=== PATIENT | female | born 1970 | race Caucasian/White ===

== ENCOUNTER 2016-08-30 08:11 | Observation (INO) | payer BC ==
[~2016-08-30] VITALS: Ht 167.6 cm; Wt 91.6 kg
--- NOTE | 2016-08-31 16:32 | NUR ---
PREADMIT PT CARE NOTE THIS IS A 45 YEAR OLD FEMALE THAT IS SCHEDULED FOR A LEFT TOTAL KNEE REPLACEMENT ON09/06/16 WITH FANY AG. PT LIVES WITH HER IN A ONE STORY HOME. STATES SHE HAS A TUB/SHOWER COMBINATION, SAID SHE IS OBTAINING A HANDHELD SHOWERHEAD AND A SHOWER SEAT. ALSO STATED SHE IS GOING TO GET A FRONT WHEELED WALKER. SHE PLANS ON DOING HER PT AN OP AT [facility] WITH ERICA. WILL FOLLOW THIS PT WHILE SHE IS IN THE HOSPITAL. 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
[2016-09-01] MEDS ORDERED: ORTHO TRI-CYCL1 EACH PO (12:49)
[2016-09-01] MEDS ORDERED: PROZAC20 MG PO (12:50)
[2016-09-01] MEDS ORDERED: ZYRTEC10 MG PO (12:50)
[2016-09-01] MEDS ORDERED: ARMOUR THYROID120 MG PO (12:50)
[2016-09-01] MEDS ORDERED: ADVIL200 MG PO (12:51)
[2016-09-01] MEDS ORDERED: ALEVE220 MG PO (12:51)
--- NOTE | 2016-09-06 05:47 | NUR ---
pt brushed teeth with chlorhexidene mouth solution and did nasal swabs x2 each nostril.
--- NOTE | 2016-09-06 08:33 | NUR ---
09/06/16 0833 Linh Monterroso 0825-PATIENT ARRIVED TO PACU ON 6L MASK O2 SAT 99% PATIENT NONAROUSABLE. LEFT KNEE CDI GOOD CAP REFILL PEDAL PULSE AND WARMTH. SR. BP 82/40 PER SUPRIYA ROUTER OPERATOR PIN GIVE REST OF THE LITER OF LR PLUS GIVEN ADDITIONAL LITER OF LR. 0828-PATIENT SLOWLY AROUSING OPENING EYES ORAL AIRWAY REMOVED. 6L MASK O2 SAT 99% PATIENT RETURNS TO SLEEPING.
--- NOTE | 2016-09-06 10:12 | NUR ---
PT SLEEPING, WITH AT BEDSIDE. NO IVF ORDERED. CALLED DR AG TO VERIFY. CONFIRMED NO IVF. TRANEXEMIC ACID TO BE BROUGHT BY PHARMACY TO BE GIVEN. 2L 02 VIA NC FOR DESATS WHEN SLEEPING. CONTINUOUS PULSE OX ON RIGHT HAND. IV IN SL. PLAN IS FOR PATIENT TO GO HOME TOMORROW PER DR AG.
--- NOTE | 2016-09-06 12:13 | NUR ---
PT PLACED ON BEDPAN. HAVING SLIGHT INCONTINENCE OF URINE WHILE GETTING BEDPAN UNDER HER. URINE BRIGHT ORANGE. EDUCATED PT ABOUT NORMALITY OF INCONTINENCE AND INABILITY TO FEEL URGE TO URINATE. TOLERATING CLEAR LIQUIDS. REPORTS BEING SLEEPY.
--- NOTE | 2016-09-06 12:41 | NUR ---
PT HAD LARGE INCONTINENT EPISODE OF URINE. 1PA TO CHAIR TO CLEAN LINENS. PERFORMED WELL WITH WALKER. PHYSICAL THERAPIST WILL SEE PATIENT AT 1330. NO DRAINAGE ON LEFT KNEE. CRYOCUFF AND SCDs IN PLACE WITH PATIENT BACK TO BED NOW. AT BEDSIDE.
--- NOTE | 2016-09-06 14:01 | NUR ---
patient up to bathroom. fresh ice water given. fresh ice in cryo cuff.
--- NOTE | 2016-09-06 15:28 | NUR ---
pt reports pain 3/10 and achy. feels ready to eat more solid food. no nausea. physical therapist reported that patient did very well with therapy this afternoon.
--- NOTE | 2016-09-06 19:14 | NUR ---
BEDSIDE REPORT RECEIVED FROM BRYCE FREEMAN. PT RESTING IN CHAIR. PT RATES RIGHT KNEE PAIN 2/10, STATES TOLERABLE AT THIS TIME. DRESSING TO KNEE IS C/D/I. PT DENIES ANY N/V, STATES ATE MOST OF DINNER WITHOUT ANY ISSUES. PT ON ROOM AIR, DENIES ANY SOB. CALL LIGHT WITHIN REACH. PT DENIES ANY FURTHER NEEDS AT THIS TIME.
--- NOTE | 2016-09-06 19:14 | NUR ---
PT SBA WITH FWW. DISCHARGE TOMORROW. TOLERATING REGULAR DIET. S/L. VOIDING WELL. PAIN WELL CONTROLLED WITH SCHEDULED MEDS. NO DRAINAGE ON LEFT KNEE DRESSING. CRYOCUFF.
--- NOTE | 2016-09-06 20:22 | NUR ---
PT ASSESSMENT COMPLETE. PT HAD JUST BEEN AMBULATING IN HALLS WITH , PT NOW RATES PAIN 3/10, SCHEDULED OXYCODONE AND TORADOL GIVEN. PT C/O ITCHING, NUBAIN GIVEN. DRESSING C/D/I, CRYO CUFF IN PLACE. TEDS/SCD/HP IN PLACE. AT BEDSIDE. CALL LIGHT WITHIN REACH. PT DENIES ANY FURTHER NEEDS AT THIS TIME.
--- NOTE | 2016-09-06 20:24 | NUR ---
PT ON ROOM AIR, SATS 96% PER CONTINUOUS PULSE OXIMETER.
--- NOTE | 2016-09-06 23:27 | NUR ---
PT SLEEPING, WAKES EASILY WHEN WALKING IN ROOM. PT DENIES ANY NEED FOR PRN PAIN MEDICATION AT THIS TIME. PT VOIDING WELL. DRESSING C/D/I, CRYO CUFF IN PLACE. PT SATS 96% ON ROOM AIR PER CONTINOUS PULSE OXIMETER. CALL LIGHT WITHIN REACH. PT DENIES ANY FURTHER NEEDS AT THIS TIME.
--- NOTE | 2016-09-07 00:56 | NUR ---
PATIENT WALKED AROUND THE HALLWAY X2.
--- NOTE | 2016-09-07 02:25 | NUR ---
PT DENIES ANY PAIN AT THIS TIME, SCHEDULED TORADOL AND OXYCODONE GIVEN. PT VOIDING WELL. SMALL AMOUNT OF SHADOWING NOTED TO MEPILEX, LOKESH WRAP AND ABD PAD CONTINUE TO BE C/D/I, WILL CONTINUE TO MONITOR. CRYO CUFF IN PLACE. SATS 95% ON ROOM AIR. CALL LIGHT WITHIN REACH. PT DENIES ANY FURTHER NEEDS AT THIS TIME.
--- NOTE | 2016-09-07 06:16 | NUR ---
PT HAD AN UNEVENTFUL NIGHT. PT AMBULATING IN HALLS WITH SBA USING FWW, TOLERATING AMBULATION WELL. PT SALINE LOCKED. PT ON REGULAR DIET. DRESSING C/D/I WITH SMALL AMOUNT OF SHADOWING NOTED TO MEPILEX. PT ONLY RECEIVING SCHEDULED TORADOL AND OXYCODONE, NO PRN MEDICATION NEEDED THIS SHIFT. PT ON ROOM AIR, SATS 96-97% PER CONTINUOUS PULSE OXIMETER. PT VOIDING WELL. PT PLAN IS TO POSSIBLY D/C HOME TODAY.
--- NOTE | 2016-09-07 07:37 | NUR ---
BEDSIDE REPORT RECEIVED FROM LAWRENCE WU. PT AWAKE LYING IN BED. NO PAIN. NO DRAINAGE ON LOKESH WRAP. TOLERATING AMBULATION WELL. VOIDING WELL.
--- NOTE | 2016-09-07 08:00 | NUR ---
PATIENT SITTING UP IN BED. ICE IN CRYO CUFF. PATIENT STATES SHE'S WASHED HER FACE AND HANDS. ORAL CARE DONE. WOULD SHOWER WHEN ALLOWED. BY HER SIDE. CALL BUTTON IN REACH. NO OTHER NEEDS AT THIS TIME.
[2016-09-07] MEDS ORDERED: XARELTO10 MG PO (09:29)
[2016-09-07] MEDS ORDERED: HYDROCODON-ACE1 EA11 PO (09:30)
[2016-09-07] MEDS ORDERED: OXYCODONE HCL5 MG PO (09:30)
[2016-09-07] MEDS ORDERED: MIRALAX17 GM PO (09:30)
--- NOTE | 2016-09-07 10:00 | NUR ---
PATIENT GETTING UP WITH PT. FRESH ICE IN CRYO CUFF GIVEN. FRESH ICE WATER.
--- NOTE | 2016-09-07 10:48 | NUR ---
COVERED DRESSING ON LEFT KNEE WITH GARBAGE BAG AND COVERED IV WITH GLOVE AND ZIPLOC TO ALLOW PT TO TAKE A SHOWER.
--- NOTE | 2016-09-07 12:04 | NUR ---
PT HAD A TOTAL KNEE YESTERDAY. SHE PLANS ON BEING DC'D LATER TODAY. WITH HER. VERY RECEPTIVE AND ATTENTIVE. HAD JUST FINISHED P.T., AND IS PLANNING ON LEAVING AFTER AFTERNOON SESSION. PT REQUESTED PRAYER, WILL FOLLOW NEEDED
--- NOTE | 2016-09-07 13:40 | NUR ---
FAXED CHART NOTES INCLUDING FACESHEET, ORDER, H AND P, OP NOTE, PROG NOTE, IMAGING, MEDS, LABS AND PT EVAL AND NOTES TO [facility]. I TALKED TO GADIEL FROM OP PT THERE AND SHE STATED THE PT ALREADY HAS AN APPT FOR THURS WITH THEM.
--- NOTE | 2016-09-08 07:42 | OR ---
[facility] [address], [place] [address] Signed PREOPERATIVE DIAGNOSIS: Posttraumatic degenerative joint disease, left knee. POSTOPERATIVE DIAGNOSIS: Posttraumatic degenerative joint disease, left knee. PROCEDURE PERFORMED: Left total knee arthroplasty with computer navigation. SURGEON: Salvador Kohler MD PTA: Sara Langley PA-C. Sara was present for the entire surgery and was necessary and critical for positioning, retraction, wound closure, and dressing application. BLOOD LOSS: Minimal. TOURNIQUET TIME: 57 minutes. IMPLANTS: [place] triathlon size 5 femur, size 4 tibia, 11 mm insert and a 35 mm patella. BRIEF HISTORY: Kimberlee is a 45-year-old female who had ACL reconstruction number of years ago with resulting worsening of knee function due to pain and stiffness. Her knee was given out and radiograp h showed end-stage arthritis. Risks and benefits of operative treatment were discussed with her and she elected to proceed. DESCRIPTION OF PROCEDURE: Once consent was obtained, she was taken to the operating room. After adequate anesthesia, placed on operat ing table. All downside pressure points well padded. A hip bump was placed. The leg was placed and well-padded proximal thigh tourniquet on. The leg was prepped and draped in standard sterile fashion. The leg was exsanguinated using Esmarch bandage. Tourn i quet, inflated to 250 mmHg. Prior incision which was longitudinal midline was extended approximately 2 inches and was carried through the skin and subcutaneous tissue. Median parapatellar arthrotomy was performed. The infrapatellar fat pad was excised. Th e MCL was elevated in a sleeve around the posterior medial corner. The anterior horn of the lateral meniscus was transected. The knee was flexed. Navigation guide was pinned to the distal femur and the distal cutting guide was then pinned in neutral alignm e nt and distal femoral cut was made. Osteophytes were removed. The AP cutting block was then pinned after sizing the knee to a 5. The cutting block was pinned in line with the epicondylar axis. The anterior Electronically Signed By: SALVADOR KOHLER MD 09/08/16 0742 PATIENT NAME: AMBROCIO GIL OPERATIVE REPORT DATE OF : 68 PHYSICIAN: SALVADOR KOHLER MD REPORT #: [id number] REPORT IS CONFIDENTIAL AND NOT TO BE RELEASED WITHOUT AUTHORIZATION [facility] [address], [place] [address] Signed posterior chamfer cuts were made. The bone pieces were removed and the attention was turned to proximal tibia. The lateral meniscus were removed allowing better visualization. The navigation guide was pinned and the cutting block was pinned in neutral alignment. The cut was made with care taken to protec t the patellar tendon and MCL. The bone was removed as well as any meniscal remnants. Posterior release performed off the femur and posterior osteophytes removed. The flexion-extension gaps were sized and found to be symmetric at 11 mm. The trials were the n positioned and was taken through range of motion found to be stable. The patella was cut sized and drilled for 35 patella. The femoral holes were drilled and the tibial punch was used to punch the keel. The tibial screw was not encountered during the pro c edure. The trials were removed. Bone surfaces were pulse lavaged pat to dry Ray-Maureen. Cement was mixed. When it reached proper consistency, all implants and all surfaces were pulse lavaged and pat to dry with Ray-Maureen. The cement was mixed and reached prope r consistency, placed on all implants on bone surfaces. The tibia was impacted into position first and all excess was removed. The polyethylene was snapped into position and the femur was impacted. Again, all excess was removed. The knee was extended and n i lisbeth loaded. The patella was clamped and any remaining cement was removed. Cement was allowed to harden for 14 minutes. The knee was taken through range of motion and found to be stable. No further cement was necessary to remove. Once this was accomplishe d , the knee was pulse lavaged at intervals throughout the procedure. Total of 3 L antibiotic irrigation was used. Periarticular soft tissues were injected with a 100 mL mixture of ropivacaine, Toradol, and clonidine. The arthrotomy was then closed using #1 Stratafix, 0 Stratafix and Dermabond mesh for the skin. She was dressed with Mepilex Ag dressing, ABD, and Jason wrap. She was awakened, taken to recovery in satisfactory condition. All sponge, needle, and instrument counts were correct. Salvador Kohler MD BA/Modl /[id number] Electronically Signed By: SALVADOR KOHLER MD 09/08/16 0742 PATIENT NAME: AMBROCIO GIL OPERATIVE REPORT DATE OF : 68 PHYSICIAN: SALVADOR KOHLER MD REPORT #: [id number] REPORT IS CONFIDENTIAL AND NOT TO BE RELEASED WITHOUT AUTHORIZATION
== END 2016-09-07 14:10 | disposition home or self-care (01) ==
LOC: MS 09-06 05:25 → DSVR 09-06 05:25 → MS 09-06 06:45
PROVIDERS: ADMIT Specialist
PROC: 8E0YXBZ Computer Assisted Procedure of Lower Extremity (ICD-10-PCS; 2016-09-06)
PROC: 0SRD0J9 Replacement of Left Knee Joint with Synthetic Substitute, Cemented, Open Approach (ICD-10-PCS; principal; 2016-09-06 06:45)
DX: M17.32 Unilateral post-traumatic osteoarthritis, left knee (principal); G89.18 Other acute postprocedural pain; F32.9 Major depressive disorder, single episode, unspecified; E03.9 Hypothyroidism, unspecified; G47.33 Obstructive sleep apnea (adult) (pediatric); K21.9 Gastro-esophageal reflux disease without esophagitis; G89.29 Other chronic pain; E66.9 Obesity, unspecified; Z68.32 Body mass index [BMI] 32.0-32.9, adult; Z79.3 Long term (current) use of hormonal contraceptives; Z79.1 Long term (current) use of non-steroidal anti-inflammatories (NSAID); Z79.899 Other long term (current) drug therapy
CPT/HCPCS: 01402; 36415; 64447; 73560; 76942; 80048; 84703; 85025; 96372; 96374; 96376; 97110; 97116; 97161; C1713; C1776; G0378; J0690; J0735; J1100; J1885; J2250; J2274; J2300; J2405; J2704; J2765; J3010; J7120

== ENCOUNTER 2022-08-16 07:00 | Day surgery (SDC) | payer OTHER, BC ==
[2022-08-05 11:38] VITALS: BP 117/69
[~2022-08-16] VITALS: Ht 167.6 cm; Wt 92.1 kg
[~2022-08-16 07:00] MED LIST: ADVIL200 MG PO; ALEVE220 MG PO; ALPRAZOLAM0.25 MG PO; ARMOUR THYROID120 MG PO; HYDROCODON-ACE1 EA11 PO; LEVOTHYROXINE125 MC1 PO; LEVOTHYROXINE137 MC1 PO; MIRALAX17 GM PO; MULTI VITAMIN1 EACH PO; ORTHO TRI-CYCL1 EACH PO; OXYCODONE HCL5 MG PO; PROZAC20 MG PO; VITAMIN D325 MC2 PO; XARELTO10 MG PO; ZYRTEC10 MG PO
[2022-08-16 07:10] VITALS: BP 123/75
[2022-08-16] MEDS ORDERED: XARELTO10 MG PO (10:02)
[2022-08-16] MEDS ORDERED: OXYCODONE HCL5 MG PO (10:03)
[2022-08-16] MEDS ORDERED: DICLOFENAC SODI75 MG PO (10:03)
[2022-08-16] MEDS ORDERED: GABAPENTIN300 MG PO (10:03)
[2022-08-16] MEDS ORDERED: SENNA LAX8.6 MG PO (10:04)
--- NOTE | 2022-08-16 10:11 | NUR ---
PT ALERT, ORIENTED AND SUPPORTED BY HER DAMARIS. PT HAS HAD L KNEE REPLACED PREVIOUS. DAMARIS WILL REMAIN FOR DC, PT REQUESTED PRAYER. GAVE BLESSING AND WILL FOLLOW
--- NOTE | 2022-08-16 10:18 | NUR ---
08/16/22 1018 Arely Tafoya 1007 PATIENT ARRIVES TO PACU AWAKE BUT DROWSY. SHARRI AIRLINE PILOT/FIRST OFFICER ELEVATES PATIENT HEAD TO 45DEGREES. PATIENT DENIES PAIN OR NAUSEA. PATIENT HYPOTENSIVE. PATIENT HOB LOWERED. 1012 PATIENT AWAKE BUT DROWSY. CONTINUES TO DENY PAIN OR NAUSEA. BP IMPROVING BUT STILL LOW. SHARRI MEDICATED PATIENT FOR BP SEE ANESTHESIA RECORED. 1018 PATIENT SLEEPING.
--- NOTE | 2022-08-16 10:40 | NUR ---
PT ARRIVES TO UNIT VIA STRETCHER FROM PACU. REPORT RECEIVED FROM RICHARD WU. PT REPORTS NO PAIN, NAUSEA, N/T, DIZZINESS, OR SOB AT THIS TIME. PT IS A&O X4, IS AT BEDSIDE. DRESSING IS C/D/I, NO SIGNS OF BLEEDING AT THIS TIME. HEEL PROTECTORS, FOOT PUMPS, ON-Q AT 4, MILAGROS HOSE, AND CRYO CUFF IN PLACE. PT IS ON RA W/O2 >90% AT THIS TIME VIA PULSE OX. ICE WATER, APPLESAUCE, AND CRACKERS PROVIDED. PT HAS NO DIFFICULTY SWALLOWING. CALL LIGHT WITHIN REACH, PT REPORTS NO NEEDS AT THIS TIME.
[2022-08-16 10:46] VITALS: BP 107/59
[2022-08-16 11:30] VITALS: BP 111/57
--- NOTE | 2022-08-16 11:35 | NUR ---
IN PT ROOM FOR ASSESSMENT AND VS. NO ACUTE CHANGES FROM PREVIOUS ASSESSMENT. PT IS ABLE TO WIGGLE TOES AND REPORTS N/T IN BILAT FEET. SPINAL HAS RESOLVED TO KNEE LEVEL AT THIS TIME. PT CONTINUES TO REPORT NO PAIN, NAUSEA, DIZZINESS, OR SOB AT THIS TIME. NO SIGNS OF BLEEDING, DRESSING IS C/D/I. TXA ADMINISTERING (SEE EMAR). PT REPORTS NO FURTHER NEEDS AT THIS TIME, CALL LIGHT WITHIN REACH.
--- NOTE | 2022-08-16 12:45 | NUR ---
IN PT ROOM FOR ASSESSMENT AND VS. PT SITTING IN BED W/HOB AT 45 DEGREEES EATING HAM SANDWICH. PT STATES SUPERIOR OF RT KNEE IS ACHEY WITH MOVEMENT AND REQUESTS PAIN MED AT THIS TIME, PRN OXYCODONE GIVEN (SEE EMAR). PT REPORTS PAIN 4/10 WITH TOLERABLE LEVEL 6/10. NO SIGNS OF BLEEDING AT THIS TIME. IV SALINE LOCKED. SPINAL HAS RESOLVED. CALL LIGHT WITHIN REACH, NO FURTHER NEEDS AT THIS TIME.
[2022-08-16 12:57] VITALS: BP 106/62
--- NOTE | 2022-08-16 13:50 | NUR ---
PT WITH PHYSICAL THERAPY AT THIS TIME.
--- NOTE | 2022-08-16 14:15 | NUR ---
PT BACK FROM PHYSICAL THERAPY, REPORT RECEIVED FROM SUPRIYA STATING PT PASSED PHYSICAL THERAPY. KIMBERLI HAGAN CALLED AND NOTIFIED, VERBAL ORDER FOR DISCHARGE GIVEN. PT REPORTS PAIN 2/10 AT THIS TIME WHICH IS TOLERABLE. NO NEW SIGNS OF BLEEDING POST AMBULATION, DRESSING REMAINS INTACT. PT ASSISTING PT WITH GETTING DRESSED. CALL LIGHT WITHIN REACH.
[2022-08-16 14:30] VITALS: BP 112/65
--- NOTE | 2022-08-16 14:30 | NUR ---
IN ROOM FOR ASSESSMENT AND VS. PT REPORTS PAIN 2/10 AND STATES NO NEED FOR PAIN MEDICATION AT THIS TIME. PT REPORTS NO NAUSEA, DIZZINESS, N/T, OR SOB. PT REMAINS ON RA W/O2 SATS >90%. ANCEF AND GABAPENTIN GIVEN PER MD ORDER (SEE EMAR). DISHCARGE EDUCATION PROVIDED, PT AND STATE NO NEW QUESTIONS OR CONCERNS AT THIS TIME. ALL BELONGINGS IN PT POSSESSION. THIS RN ESCORTS PT OFF OF UNIT VIA WC TO PASSENGER SIDE OF VEHICLE. NO FURTHER QUESTIONS OR NEEDS AT THIS TIME, PT AND STATE VERBAL UNDERSTANDING OF EDUCATION PROVIDED.
--- NOTE | 2022-08-17 07:27 | OR ---
[facility] [address] [place], [place] [address] Signed DATE OF OPERATION: 08/16/2022 SURGEON: Salvador Kohler MD PREOPERATIVE DIAGNOSIS: Right knee osteoarthritis. POSTOPERATIVE DIAGNOSIS: Right knee osteoarthritis. PROCEDURE PERFORMED: Right total knee arthroplasty with Bryce. FERMENTATION OPERATOR: Sara Langley PA-C. Sara was present and critical for all portions of the procedure. ANESTHESIA: Spinal. BLOOD LOSS: 165 mL. TOURNIQUET TIME: Zero. IMPLANTS: [place] Triathlon size 4 femur, 3 tibia, 9 mm polyethylene and a 32 mm patella. BRIEF HISTORY: Kimberlee is a 51-year-old female with progressive worsening of osteoarthritis. She had undergone left total knee several years ago with good results. Risks and benefits of operative treatment were discussed with her and she elected to proceed. PROCEDURE IN DETAIL: Once consent was obtained, she was taken to the operating room. After adequate anesthesia, she was placed on the hip bump and the leg was prepped and draped in a standard sterile fashion. Leg was approached through a standard anterior midline incision, carried through the skin and subcutaneous tissue. The midvastus arthrotomy was performed and the infrapatellar fat pad was excised. The MCL was elevated with a Electronically Signed By: SALVADOR KOHLER MD 08/17/22 0727 PATIENT NAME: AMBROCIO GIL OPERATIVE REPORT DATE OF : 68 REPORT #: [id number] PHYSICIAN: SALVADOR KOHLER MD PCP: LUIS WHEAT NP REPORT IS CONFIDENTIAL AND NOT TO BE RELEASED WITHOUT AUTHORIZATION [facility] [address] [place], [place] [address] Signed sleeve around the posteromedial corner. Anterior horn of the lateral meniscus was transected. The medial meniscus was mostly absent. The ACL was transected. PCL was found to be intact. The navigation computer arrays were placed in the medial femoral condyle and proximal tibia and the leg was registered with the computer. The fine anatomic points of the knee were then registered and varus and valgus testing was undertaken and the alignment of the prosthesis was changed slightly. The robot was then brought in, the four straight cuts and two angled cuts were taken with care to protect the MCL and patellar tendon. The bony remnants were removed as were any remaining osteophytes and posterior osteophytes removed off the femur. No release was performed. The femoral and tibial trials were positioned. Knee was taken from 0 to 130 degrees with good stability. The patella was cut sized and drilled for a 32 mm patella. The femoral drill holes were made and then the tibia was finished using the keel punch followed by the drill holes. The knee was washed out with Surgiphor. The tibia was impacted into position, followed by the polyethylene and then the femur. The knee was extended and loaded and the patella was clamped. The knee was again irrigated using Surgiphor and normal saline. Periarticular soft tissues were injected with 100 mL of ropivacaine and Toradol mixture. The On-Q pain pump was percutaneously placed into the adductor canal from the suprapatellar pouch. The arthrotomy was then closed using #2 Stratafix and #2 FiberWire. The subcutaneous tissue with 0 Stratafix and the skin with 3-0 Stratafix. The wound was dressed with an Aquacel Ag dressing, ABD, and Jason wrap. She tolerated the procedure well. All sponge, needle, and instrument counts were correct. Salvador Kohler MD BA/DENTONL /[id number] Copies: ~ Electronically Signed By: SALVADOR KOHLER MD 08/17/22 0727 PATIENT NAME: AMBROCIO GIL OPERATIVE REPORT DATE OF : 68 REPORT #: [id number] PHYSICIAN: SALVADOR KOHLER MD PCP: LUIS WHEAT NP REPORT IS CONFIDENTIAL AND NOT TO BE RELEASED WITHOUT AUTHORIZATION
== END 2022-08-16 14:45 | disposition home or self-care (01) ==
LOC: DS 07:00
PROVIDERS: ATTEND Specialist
PROC: 3E0T3BZ Introduction of Anesthetic Agent into Peripheral Nerves and Plexi, Percutaneous Approach (ICD-10-PCS; 2022-08-16)
PROC: 0SRC0JZ Replacement of Right Knee Joint with Synthetic Substitute, Open Approach (ICD-10-PCS; principal; 2022-08-16 09:20)
DX: M17.11 Unilateral primary osteoarthritis, right knee (principal); F32.A Depression, unspecified; E03.9 Hypothyroidism, unspecified
CPT/HCPCS: 01400; 64447; 64450; 76942; 97161; C1776; J0690; J1100; J1885; J2001; J2250; J2405; J2704; J2795; J7121

== ENCOUNTER 2023-10-21 07:25 | Day surgery (SDC) | payer OTHER, BC ==
--- NOTE | 2023-10-13 13:12 | NUR ---
PHONE CALL TO [phone] TO COMPLETE PRE-ADMIT. NO ANSWER. THIS IS THE SCOND TIME TO REACH PATIENT AT THIS NUMBER.
[~2023-10-21] VITALS: Ht 167.6 cm; Wt 90.9 kg
[~2023-10-21 07:25] MED LIST changes: +CEFAZOLIN SODIUM 2 GM/20 ML SYR IV SCH; +DICLOFENAC SODI75 MG PO; +GABAPENTIN300 MG PO; +IBLOOD GLUCOSE TEST STRIP 1 EA TEST VI PRN; +LACTATED RINGER'S 1,000 ML IV SCH; +LIDOCAINE HCL 1% 5 ML SDV INJ ONE; +SENNA LAX8.6 MG PO
[2023-10-21 07:42] VITALS: BP 138/73
[2023-10-21] MEDS ORDERED: HYDROCODONE/ACETA 5/325 TAB PO PRN (09:45)
[2023-10-21] MEDS ORDERED: fentaNYL citrate 100 MCG/2 ML VIAL ONE (09:52)
[2023-10-21] MEDS ORDERED: propofoL 200 MG/20 ML VIAL ONE (09:52)
[2023-10-21] MEDS ORDERED: LIDOCAINE HCL 2% 5 ML SDV ONE (09:53)
[2023-10-21] MEDS ORDERED: ACETAMINOPHEN 1,000 MG/100 ML VIAL ONE ×2 (10:00→10:03)
[2023-10-21] MEDS ORDERED: DEXAMETHASONE SOD PHOS 4 MG/ML VIAL ONE (10:00)
[2023-10-21] MEDS ORDERED: ondansetron HCL 4 MG/2 ML VIAL ONE (10:00)
[2023-10-21] MEDS ORDERED: HYDROCODON-ACE1 EA10 PO (10:26)
[2023-10-21 10:44] VITALS: BP 111/68
--- NOTE | 2023-10-21 10:47 | NUR ---
10/21/23 1047 Heaven,Deepa 1020 PT ARRIVED TO PACU ON RA, PT WAKES EASILY AND DENIES PAIN AND NAUSEA. PT REORIENTED TO PACU AND PLAN OF CARE DISCUSSED. 1030 PT FALLS ASLEEP WHEN NOT STIMULATED AND O2 DECREASED TO HIGH 80S/ PT WAKES HERSELF AND DEEP BREATHING ENCOURAGED. O2 INCREASED TO MID 90S. EDUCATION GIVEN ON BREATHING AND MEDICATION. 1035 MD AT BEDSIDE TALKING TO PT AND ALL QUESTIONS ANSWERED. 1040 HOB INCREASED PER REQUEST AND PT SIPPING WATER, PT MORE AWAKE AND CONTINUES TO DENY CONCERNS. VSS. REPORT GIVEN AND AT BEDSIDE.
--- NOTE | 2023-10-21 10:50 | NUR ---
patient reutrns from PACU via stretcher. patient awake and oriented. no signs of acute distress. patient denies nausea/vomiting or pain to the surgical site. dressing to left knee is intact with no drainage noted to bandage. patient is sipping on water and crackers were provided to patient. she denies any other needs at this time.
--- NOTE | 2023-10-21 11:40 | NUR ---
PATIENT STILL DOING WELL. DENIES NAUSEA/VOMITING OR ANY PAIN TO SURGICAL SITE. PATIENT HAS DRANK WATER AND EATEN CRACKERS. DEEPAK REPORTS SLIGHT HEADACHE, BUT HAS NOT HAD CAFFEINE TODAY AND SHE IS A DAILY CAFFEINE DRINKER. PATIENT AMBULATED WITH STEADY GAIT TO RESTROOM AND VOIDED 200ML. PATIENT FEELS LIKE SHE IS READY TO BE DISCHARGED.
[2023-10-21 11:46] VITALS: BP 135/69
--- NOTE | 2023-10-21 11:50 | NUR ---
PATIENT DRESSED SELF. DISCHARGED INSTRUCTIONS REVIEWED WITH PATIETN AND AND THEY SHOWED UNDERSTANDING. ALL QUESTIONS ANSWERED. IV REMOVED. PATIENT AMBULATED TO WHEELCHAIR AND THIS RN WHEELED PATIENT OUT TO CAR WITH THE COMMUNITY SERVICE SPECIALIST.
--- NOTE | 2023-10-21 12:36 | OR ---
[facility] [address] [place], [place] [address] Signed DATE OF OPERATION: 10/21/2023 SURGEON: Salvador Kohler MD PREOPERATIVE DIAGNOSIS: Incisional granuloma, right knee. POSTOPERATIVE DIAGNOSIS: Incisional granuloma, right knee. PROCEDURE PERFORMED: Excision of mass, right knee. ADVERTISING COORDINATOR: None. ANESTHESIA: General. BLOOD LOSS: Minimal. BRIEF HISTORY: Ambrocio is a 53-year-old female, who underwent total knee arthroplasty last year. She developed a granuloma that did not heal with normal treatment. Risks and benefits of excision were discussed with her and she elected to proceed. PROCEDURE IN DETAIL: Once consent was obtained, she was taken to the operating room. After adequate anesthesia, the leg was prepped and draped in a standard sterile fashion. The granuloma was in the midportion of the incision and an elliptical incision was marked out around it. The field was then blocked with 0.25% Marcaine with epinephrine. The elliptical incision was then made on both sides. The skin was completely excised including the granuloma. The underlying soft tissue was in good condition. There was no infection. The wound was copiously irrigated with normal saline and closed with 3-0 Monocryl and 3-0 Stratafix. The wound was sealed with LiquiBand and Steri-Strips. She tolerated the procedure well. All sponge, needle, and instrument counts were correct. Wound was dressed with Allevyn and an Jason wrap. She was taken to the recovery room in satisfactory condition. Electronically Signed By: SALVADOR KOHLER MD 10/21/23 1236 PATIENT NAME: AMBROCIO GIL OPERATIVE REPORT DATE OF : 68 REPORT #: [id number] PHYSICIAN: SALVADOR KOHLER MD PCP: LUIS WHEAT NP REPORT IS CONFIDENTIAL AND NOT TO BE RELEASED WITHOUT AUTHORIZATION [address] [address] Signed Salvador Kohler MD BA/DENTON /[id number] Copies: ~ Electronically Signed By: SALVADOR KOHLER MD 10/21/23 1236 PATIENT NAME: AMBROCIO GIL OPERATIVE REPORT DATE OF : 68 REPORT #: [id number] PHYSICIAN: SALVADOR KOHLER MD PCP: LUIS WHEAT NP REPORT IS CONFIDENTIAL AND NOT TO BE RELEASED WITHOUT AUTHORIZATION
== END 2023-10-21 11:50 | disposition home or self-care (01) ==
LOC: DS 07:25
PROVIDERS: ATTEND Specialist
PROC: 0HBKXZZ Excision of Right Lower Leg Skin, External Approach (ICD-10-PCS; principal; 2023-10-21 09:00)
DX: L92.3 Foreign body granuloma of the skin and subcutaneous tissue (principal); E03.9 Hypothyroidism, unspecified; Z96.651 Presence of right artificial knee joint; Z79.890 Hormone replacement therapy; Z79.899 Other long term (current) drug therapy
CPT/HCPCS: J0131; J0690; J1100; J2001; J2405; J2704; J3010; J7121